=== PATIENT | male | born 1960 | race Caucasian/White ===

== ENCOUNTER 2025-01-05 18:06 | Emergency (ER) | payer BC ==
[2025-01-05] MEDS: Lidocaine 1% 10 ML MDV INJECT ONE (18:35)
[2025-01-05] MEDS: Bacitracin Oint 1 GM U/D Packet TOP ONE (18:50)
== END 2025-01-05 19:00 | disposition home or self-care (01) ==
LOC: LB.ED 18:06
DX: S01.81XA Laceration without foreign body of other part of head, initial encounter (principal); Z79.899 Other long term (current) drug therapy; Z79.82 Long term (current) use of aspirin; Z88.6 Allergy status to analgesic agent; W11.XXXA Fall on and from ladder, initial encounter; W22.8XXA Striking against or struck by other objects, initial encounter
CPT/HCPCS: 12013; 99282; J2003